=== PATIENT | female | born 2000 | race Hispanic/Latino ===

== ENCOUNTER 2022-01-20 18:41 | Emergency (ER) | payer OTHER, SELFPAY ==
[2022-01-20 18:51] VITALS: BP 126/70; PULSE 103; RESP 18; TEMP 36.7; O2SAT 99
--- NOTE | 2022-01-20 19:14 | ED.SKABFB ---
HPI - Skin/Abscess/Foreign Bdy General Chief complaint: Skin/Abscess/Foreign Body Stated complaint: Swelling throughout body; blister; short of breath Time Seen by Provider: 01/20/22 19:14 Source: patient and RN notes reviewed Mode of arrival: ambulatory Limitations: no limitations History of Present Illness HPI narrative: 21-year-old female presents concern for allergic reaction. She reports a fine itchy rash generalized, reports palms of her hands and soles of her feet are burning. She reports the rash is spreading to her face and causing bumps on her lips. She reports she feels short of breath. She reports she has been taking Benadryl regularly for 2 days without relief. She reports history of eczema, reports history of having reactions where she needed steroid shots. MD complaint: rash Related Data Home Medications Medication Instructions Recorded Confirmed albuterol sulfate 90 mcg/actuation 1 inh inhalation QID 01/20/22 01/20/22 aerosol inhaler hydroxyzine pamoate 25 mg PO TID 01/20/22 01/20/22 venlafaxine 75 mg DIRECTED 01/20/22 01/20/22 Allergies Allergy/AdvReac Type Severity Reaction Status Date / Time grass pollen Allergy Intermediate Rash Verified 01/20/22 19:16 Review of Systems Review of Systems: CONSTITUTIONAL: Denies malaise, chills, sweats, or fever. EYES: Denies redness, or discharge. ENT: Denies rhinorrhea, congestion, swollen lips, swollen tongue. Reports bumps on her lips CARDIOVASCULAR: Denies chest pain, palpitations, or edema. RESPIRATORY: Denies cough. Reports dyspnea. GASTROINTESTINAL: Denies abdominal pain, nausea, vomiting SKIN: Reports generalized itchy rash MUSCULOSKELETAL: Denies joint pain or myalgia. NEUROLOGIC: Denies headache. All systems reviewed & are unremarkable except as noted in HPI and below PMFSH Comments At time of signature, agree with nursing past medical, surgical, social and family history. There is no relevant family history pertinent to the presenting complaint Exam Narrative: GENERAL: Well-appearing, well-nourished, and in no acute distress. HEAD: Normocephalic, atraumatic. EYES: PERRLA, conjunctivae clear, and EOMI. ENT: Mucous membranes moist. Oropharynx without edema, erythema or lesions. NECK: Supple. No lymphadenopathy CHEST: Clear to auscultation. No respiratory distress. Speaks in full sentences HEART: Regular rate and rhythm. SKIN: Warm, dry. Generalized fine erythematous papular rash noted NEURO: Alert and oriented x3. PSYCH: Normal mood and affect Course Course Emergency Course: Patient is aware of diagnosis, understands and agrees to treatment plan. Anticipatory guidance given. Patient agrees to follow-up as directed and is aware of reasons to seek care at the emergency department. Portions of this record may have been created with voice recognition software Level of Care: Express Care Visit Vital Signs Vital signs: Vital Signs Temperature 98.0 F 01/20/22 18:51 Pulse Rate 103 H 01/20/22 18:51 Respiratory Rate 18 01/20/22 18:51 Blood Pressure 126/70 01/20/22 18:51 Pulse Oximetry 99 01/20/22 18:51 Oxygen Delivery Room Air 01/20/22 18:51 Temperature 98.0 F 01/20/22 18:51 Pulse Rate 103 H 01/20/22 18:51 Respiratory Rate 18 01/20/22 18:51 Blood Pressure 126/70 01/20/22 18:51 Pulse Oximetry 99 01/20/22 18:51 Oxygen Delivery Room Air 01/20/22 18:51 Reviewed. MDM - Skin/Abscess/Foreign Bdy MDM Narrative Medical decision making narrative: Does not appear at this time to be erythema multiforme, bullous, SJS, TEN; no evidence at this time to suggest RMSF, endocarditis or Lyme disease; patient looks well, nontoxic and is tolerating oral intake; no neurologic signs or symptoms; no headache, photophobia or neck pain; afebrile; appropriate for initial outpatient treatment; discussed the importance of follow-up, patient agrees; question, viral exanthema, contact dermatitis, allergic dermatitis, eczema,
[2022-01-20] MEDS: methylPREDNISolone SOD SUCC 125 MG VIAL IM (19:26)
== END 2022-01-20 19:49 | disposition home or self-care (01) ==
PROVIDERS: Emergency Provider Nurse Practitioner
DX: R21 Rash and other nonspecific skin eruption (principal); R06.02 Shortness of breath; L30.9 Dermatitis, unspecified
CPT/HCPCS: 96372; 99203; G0463; J2930